=== PATIENT | female | born 1955 | race Caucasian/White ===

== ENCOUNTER 2023-01-10 12:48 | Emergency (ER) | payer MEDICARE, BC, SELFPAY ==
[2023-01-10 12:51] VITALS: BP 136/66; PULSE 75; RESP 15; TEMP 36.7; O2SAT 95; BMI 36.8
--- NOTE | 2023-01-10 12:59 | DI.RAD.S_ITS ---
PROCEDURE: XR CHEST 2V INDICATIONS: cough/congestion 2 weeks TECHNIQUE: 2 views of the chest were acquired. COMPARISON: None. FINDINGS: Surgical changes and devices: None. Lungs and pleura: Lungs are clear. No pleural effusions or pneumothorax. Mediastinum: Mediastinal contours are normal. Heart size is mildly enlarged. Bones and chest wall: No suspicious bony abnormalities. Soft tissues appear unremarkable. IMPRESSION: No acute cardiopulmonary process. Dictated by: Parth Devine M.D. on 01/10/2023 at 13:20 Approved by: Parth Devine M.D. on 01/10/2023 at 13:24
[2023-01-10 14:17] LABS: Influenza A - CEPHEID Flu A NEGATIVE (NEGATIVE); Influenza B - CEPHEID Flu B NEGATIVE (NEGATIVE); Respiratory Syncytial Virus Negative (Negative)
[2023-01-10 14:21] LABS: COVID-19 CEPHEID 4-PLEX PCR Negative (Negative)
--- NOTE | 2023-01-10 14:30 | ED_ITS ---
HPI - URI/Sore Throat <Jagruti Rose PA-C - Last Filed: 01/10/23 14:56> General Chief Complaint: Upper Respiratory Symptoms Stated Complaint: T-14 yellow mucas coming out of sinus Time Seen by Provider: 01/10/23 13:20 Source: patient Mode of arrival: Ambulatory History of Present Illness HPI Narrative: 67-year-old woman with a history of asthma presents with concern for persistent upper respiratory symptoms. Patient states that she originally became sick about 2 weeks ago with cold sore throat and sinus congestion. She states she has generally improved except that her sinus congestion has continued and has worsened and she is been having intense headaches pressure behind her eyes and in her sinuses and forehead. In the last couple of days she is noticed dark yellow thick mucus coming out when she blows her nose. She states her headaches are positional she leans forward it makes it much more uncomfortable, she is been feeling fatigued along with these symptoms? did not really feel like doing anything today not even taking a shower?. She denies pain with coughing or breathing, chest pain, shortness of breath, persistent cough, productive cough, fevers, chills, ear pain, sore throat or any other symptoms. Related Data Previous Rx's Medication Instructions Recorded benzonatate 100 mg capsule 100 mg PO BID PRN cough #20 caps 12/28/22 dextromethorphan polistirex 30 10 ml PO Q12H PRN cough #89 mL 12/28/22 mg/5 mL oral susp ext.release 12hr (Delsym 12 hour) amoxicillin 500 mg-potassium 1 tab PO Q8H bacterial sinusitis 01/10/23 clavulanate 125 mg tablet 10 days #30 tabs (Augmentin) carbamide peroxide 6.5 % ear drops 2 drp EAR-BOTH DAILY 10 days #15 mL 01/10/23 Allergies Allergy/AdvReac Type Severity Reaction Status Date / Time No Known Drug Allergies Allergy Verified 01/10/23 12:51 Review of Systems <Jagruti Rose PA-C - Last Filed: 01/10/23 14:56> Review of Systems Narrative: See HPI Patient History <Jagruti Rose PA-C - Last Filed: 01/10/23 14:56> Social History Smoking Status: Unknown if ever smoked Smoking Status: Unknown if ever smoked alcohol intake frequency: holidays/special occasions only Substance Use Type: does not use Exam <Jagruti Rose PA-C - Last Filed: 01/10/23 14:56> Narrative Exam Narrative: GENERAL: [67] year old patient appears stated age. Well-developed patient, in mild distress. HEAD: Atraumatic. Normocephalic. EYES: Pupils equal round and reactive. Extraocular motions intact. No scleral icterus. No injection or drainage. ENT: Nose without bleeding, purulent drainage. Throat without erythema, tonsillar hypertrophy or exudate. Airway patent. Impacted cerumen bilaterally. Frontal sinuses are tender with palpation/percussion. NECK: Trachea midline. Non tender CARDIOVASCULAR: Regular rate and rhythm without murmurs, gallops, or rubs. RESPIRATORY: Clear to auscultation. Breath sounds equal bilaterally. No wheezes, rales, or rhonchi. EXTREMITIES: No edema or joint tenderness. NEURO: AOx3. SKIN: No rash or erythema of visible areas Initial Vital Signs Initial Vital Signs: Vital Signs Temperature 98.0 F 01/10/23 12:51 Pulse Rate 75 01/10/23 12:51 Respiratory Rate 15 01/10/23 12:51 Blood Pressure 136/66 01/10/23 12:51 Pulse Oximetry 95 01/10/23 12:51 Oxygen Delivery Method Room Air 01/10/23 12:51 <Jodie Birmingham DO - Last Filed: 01/10/23 19:12> Initial Vital Signs Initial Vital Signs: Vital Signs Temperature 98.0 F 01/10/23 12:51 Pulse Rate 75 01/10/23 12:51 Respiratory Rate 15 01/10/23 12:51 Blood Pressure 136/66 01/10/23 12:51 Pulse Oximetry 95 01/10/23 12:51 Oxygen Delivery Method Room Air 01/10/23 12:51 Course <Jagruti Rose PA-C - Last Filed: 01/10/23 14:56> Orders Ordered: ED Orders 01/10/23 12:59 XR chest 2V Stat 01/10/23 13:35 Covid-19 + FLU A/B + RSV - PCR Stat Vital Signs Vital signs: Vital Signs - 8 hr 01/10/23 12:51 01/10/23 14:52 Temperature 98.0 F Pulse Rate 75 66 Respiratory Rate 15 18 Blood Pressure 136/66 115/57 L Pulse Oximetry 95 97 Oxygen Delivery Method Room Air Room Air <Jodie Birmingham DO - Last Filed: 01/10/23 19:12> Orders Ordered: ED Orders 01/10/23 12:59 XR chest 2V Stat 01/10/23 13:35 Covid-19 + FLU A/B + RSV - PCR Stat Vital Signs Vital signs: Vital Signs - 8 hr 01/10/23 12:51 01/10/23 14:52 Temperature 98.0 F Pulse Rate 75 66 Respiratory Rate 15 18 Blood Pressure 136/66 115/57 L Pulse Oximetry 95 97 Oxygen Delivery Method Room Air Room Air MDM - URI/Sore Throat <Jagruti Rose PA-C - Last Filed: 01/10/23 14:56> Differential Diagnosis Differential diagnosis: Likely upper respiratory infection, sinusitis, bronchitis and other (Bacterial sinusitis, pneumonia, cerumen impaction) Medical Records Attestation: I reviewed the patient's medical records. Lab Data Attestation: I reviewed the patient's lab results. Labs: Lab Results 01/10/23 Range/Units 13:35 SARS-CoV-2 (PCR) Negative (Negative) Influenza A (RT-PCR) Flu a negative (NEGATIVE) Influenza B (RT-PCR) Flu b negative (NEGATIVE) RSV (PCR) Negative (Negative) Imaging Data Chest x-ray: My Impression: Agree with Radiology interpretation Radiologist's Impression: [address] [address] XRay Report Signed Patient: Medhat Hadley MR#: [id number] : 1955 Acct:[id number] Age/Sex: 67 / F Date of Service: 01/10/23 Loc: ED Accession Number: [id number] ?? Procedure: XR chest 2V Ordering Provider: Jodie Birmingham D.O. PROCEDURE:? XR CHEST 2V ? INDICATIONS:? cough/congestion 2 weeks ? TECHNIQUE:? 2 views of the chest were acquired.? ? COMPARISON:? None. ? FINDINGS:? ? Surgical changes and devices:? None.? ? Lungs and pleura:? Lungs are clear.? No pleural effusions or pneumothorax.? ? Mediastinum:? Mediastinal contours are normal.? Heart size is mildly enlarged.? ? Bones and chest wall:? No suspicious bony abnormalities.? Soft tissues appear unremarkable.? ? IMPRESSION:? No acute cardiopulmonary process. ? ? ? Dictated by: Parth Devine M.D. on 01/10/2023 at 13:20 ? ? Approved by: Parth Devine M.D. on 01/10/2023 at 13:24?? MDM Narrative Medical decision making narrative: This is a well-appearing [age]-year-old woman who presents with concern for persistent upper respiratory symptoms. Originally became sick a little over 2 weeks ago had fevers cough and sinus congestion. Most of her symptoms have resolved but she is had persistent sinus pressure and pain behind her eyes that has been worsening over the last 2-3 days. Also thick dark yellow mucus, patie nt has increased sinus pain with leaning forward and change in body position. Given duration of patient's symptoms and progression of symptoms I have concern for bacterial sinusitis and prescription today for Augmentin. For 10 day course. Patient does have a chest x-ray performed today which is unremarkable and not suggestive of pneumonia, she also has COVID flu and RSV testing done. These come back negative. Patient has unremarkable vitals she is nontoxic appearing, no recent fevers chills or other concerning symptoms for a pneumonia or generalized infection, additional labs are not obtained today. On exam did note the patient had bilateral impacted cerumen, counseled her regarding potential care for this including [id number] drops to loosen this I would also talked about providing prescription for this. Do not feel that this is cause of the patient's symptoms however she notes she has had a chronic problem with excessive cerumen. Return precautions provided, follow-up plan discussed, all questions answered. <Jodie Birmingham, DO - Last Filed: 01/10/23 19:12> Lab Data Labs: Lab Results 01/10/23 Range/Units 13:35 SARS-CoV-2 (PCR) Negative (Negative) Influenza A (RT-PCR) Flu a negative (NEGATIVE) Influenza B (RT-PCR) Flu b negative (NEGATIVE) RSV (PCR) Negative (Negative) Discharge Plan Departure Patient Disposition: Home Clinical Impression: Bacterial sinusitis, Cerumen impaction Activity Restrictions/Additional Instructions: *You have been diagnosed with [67 ] *What to do: *Please continue to take your regular medications as directed. [ 2] New medication prescriptions sent to your pharmacy: [ ] [ ] New medication written as a paper prescription [ ] No new medications given *Please follow up with your primary care provider in 2-3 days, call for an appointment. Let them know you were seen in the Emergency Department and that we ask that you be seen in follow up. We will electronically transmit a record of today's note if your PCP is in our system. I did send him 2 prescriptions today to your pharmacy, Augmentin for her sinus infection as well as carbamide peroxi de drops for your ears with your impacted cerumen. Please follow-up with your primary care provider. Take the antibiotics for the full course even if your feeling better. *If you do not have a primary care provider please contact the [facility] Resource line at [phone]. They will ask some questions about your medical history and help get you set up with a doctor in the community. *Return to Emergency Department if you should have any new, worsening or concerning symptoms, such as [fever greater than 101 F, shaking chills, worsening pain, persistent vomiting or other bothersome symptoms] Prescriptions: New amoxicillin-pot clavulanate [Augmentin] 500-125 mg tablet 1 tab PO Q8H 10 Days Qty: 30 0RF carbamide peroxide 6.5 % drops 2 drp EAR-BOTH DAILY 10 Days Qty: 15 0RF No Action benzonatate 100 mg capsule 100 mg PO BID PRN (Reason: cough) Qty: 20 0RF dextromethorphan polistirex [Delsym 12 hour] 30 mg/5 mL suspension,extended rel 12 hr 10 ml PO Q12H PRN (Reason: cough) Qty: 89 0RF Referrals: Miscellaneous,Doctor, [Primary Care Provider] - Stand Alone Forms: Patient Portal/API <Jodie Birmingham DO - Last Filed: 01/10/23 19:12> Cosign ED Attending Carmenature Attestation: I was immediately available in the department for consultation. Documentation has been reviewed.
[2023-01-10 14:52] VITALS: BP 115/57; PULSE 66; RESP 18; O2SAT 97
== END 2023-01-10 15:00 | disposition home or self-care (01) ==
PROVIDERS: Emergency Medicine; Emergency Provider Student in an Organized Health Care Education/Training Program
DX: J32.8 Other chronic sinusitis (principal); H61.23 Impacted cerumen, bilateral
CPT/HCPCS: 0241U; 71046; 99283